=== PATIENT | male | born 1970 | race Caucasian/White ===

== ENCOUNTER 2023-10-19 19:40 | Emergency (ER) | payer OTHER ==
[~2023-10-19] VITALS: Ht 177.8 cm; Wt 75.0 kg
[2023-10-19] MEDS ORDERED: LIDOCAINE/PF 2% 5 ML SYRINGE IVP ONE (21:14)
[2023-10-19] MEDS: TAMSULOSIN HCL 0.4 MG CAPSULE PO ONE (21:42)
[2023-10-19] MEDS: CEPHALEXIN MONOHYDRATE 500 MG CAPSULE PO ONE (21:42)
[2023-10-19] MEDS: LIDOCAINE 2% 6 ML JELLY TP ONE ×2 (21:44)
[2023-10-19] MEDS ORDERED: PHEN-674 PO (21:48)
[2023-10-19] MEDS ORDERED: TAMS0.4C94 PO (21:48)
[2023-10-19] MEDS ORDERED: CEPH-558 PO (21:48)
[2023-10-19 22:00] LABS: BASOPHILS % (AUTO) 0.3 % (0.0-2.0); EOSINOPHILS % (AUTO) 0.2 % (1.0-6.0); HEMATOCRIT 47.7 % (41-53); HEMOGLOBIN 16.8 g/dL (13.5-17.5); LYMPHOCYTES # (AUTO) 0.7 K/uL (1.0-4.8); LYMPHOCYTES % (AUTO) 7.5 % (22.0-44.0); MEAN CORPUSCULAR HEMOGLOBIN 31.2 pg (26.0-34.0); MEAN CORPUSCULAR HGB CONC 35.1 G/dL (31.0-37.0); MEAN CORPUSCULAR VOLUME 89 fL (80-100); MONOCYTES # (AUTO) 0.5 K/uL (0.1-1.0); MONOCYTES % (AUTO) 5.7 % (2.0-9.0); NEUTROPHILS # (AUTO) 7.8 K/uL (1.8-7.7); PLATELET COUNT (AUTO) 220 K/uL (150-450); RED BLOOD CELL COUNT(AUTO) 5.37 MIL/uL (4.50-5.90); RED CELL DISTRIBUTION WIDTH 13.6 % (11.5-14.5)
[2023-10-19 22:02] LABS: NEUTROPHILS % (AUTO) 86.3 % (40.0-70.0)
[2023-10-19 22:09] LABS: ANION GAP 9 mmol/L (8-16); CALCIUM, TOTAL 9.2 mg/dL (8.8-10.5); CARBON DIOXIDE 27 mmol/L (22-29); CHLORIDE 103 mmol/L (98-107); CREATININE 0.67 mg/dL (0.60-1.30); GLOMERULAR FILTR. RATE CALC > 60 mL/min (>60); GLUCOSE,RANDOM 117 mg/dL (70-110); POTASSIUM 3.6 mmol/L (3.5-5.1); SODIUM SERUM 139 mmol/L (136-145); UREA NITROGEN, BLOOD 16 mg/dL (7-18)
[2023-10-19 22:17] LABS: RBC MORPHOLOGY COMMENT NORMAL RBC MORPH
[2023-10-19 23:00] VITALS: BP 135/81; PULSE 79; RESP 16; TEMP 97.3
== END 2023-10-19 23:20 | disposition home or self-care (01) ==
LOC: EMS 19:43
DX: R33.9 Retention of urine, unspecified (principal); I10 Essential (primary) hypertension
CPT/HCPCS: 99284; 80048; 85025; 36415; 51702; J3490; Q9967